=== PATIENT | male | born 1990 | race African-American/Black ===

== ENCOUNTER 2019-04-03 15:18 | Emergency (ER) | payer SELFPAY ==
[2019-04-03] MEDS ORDERED: Adacel (T-DAP) 0.5 ML SYRINGE ONE (15:27)
[2019-04-03] MEDS ORDERED: Lidocaine 1% (PF) 30 ML VIAL ONE (15:35)
[2019-04-03] MEDS ORDERED: Bacitracin Zinc 1 Packet ONE (16:08)
== END 2019-04-03 16:23 | disposition home or self-care (01) ==
LOC: NAV ERS 15:18
DX: S61.216A Laceration without foreign body of right little finger without damage to nail, initial encounter (principal); W26.8XXA Contact with other sharp object(s), not elsewhere classified, initial encounter
CPT/HCPCS: 12001; 90471; 90715; J2001

== ENCOUNTER 2019-04-12 10:47 | Emergency (ER) | payer SELFPAY ==
[2019-04-12] MEDS ORDERED: Bacitracin Zinc 1 Packet ONE (11:30)
== END 2019-04-12 11:37 | disposition home or self-care (01) ==
LOC: NAV ERS 10:47
DX: S61.217D Laceration without foreign body of left little finger without damage to nail, subsequent encounter (principal)